=== PATIENT | male | born 1965 | race Caucasian/White ===

== ENCOUNTER 2020-11-02 09:55 | Emergency (ER) | payer MEDICAID, OTHER ==
[~2020-11-02] VITALS: Ht 175.2 cm; Wt 78.3 kg
[2020-11-02 10:01] VITALS: BP 123/66
--- NOTE | 2020-11-02 10:14 | ED Cough/URI ---
General Stated Complaint: FEVER; NASAL DRAINAGE History of Present Illness Date Seen by Provider: Nov 02, 2020 Time Seen by Provider: 10:10 Initial Comments 55-year-old male presents with 1 week of cough nasal congestion and malaise. Has been tested twice for Covid twice since onset and both times negative. Taking nhsr-rup-otcanva cough cold medicine with some relief, although he is wondering why he is not better yet. Patient is a long-term smoker without any known significant past medical history and on no prescription medication Allergies and Home Medications Allergies Coded Allergies: acetaminophen (Verified Allergy, Unknown, 11/02/20) hydrocodone (Verified Allergy, Unknown, 11/02/20) Patient Home Medication List Home Medication List Reviewed: Yes Albuterol Sulfate (Proair Hfa) 1 Puff Puff, 2 PUFF IH Q4H Prescribed by: DARRYN FUCHS on 11/02/20 1034 Doxycycline Hyclate (Doxycycline Hyclate) 100 Mg Tablet, 100 MG PO BID Prescribed by: DARRYN FUCHS on 11/02/20 1034 Review of Systems Review of Systems Constitutional: fever (subjective), malaise EENTM: ear pain, nose congestion; No throat pain, No throat swelling Respiratory: cough; No short of breath, No wheezing Cardiovascular: No chest pain, No edema, No palpitations Gastrointestinal: No abdominal pain, No loss of appetite, No nausea, No vomiting Musculoskeletal: No back pain, No joint pain Skin: No change in color, No rash Psychiatric/Neurological: Denies Headache, Denies Weakness Past Xdcbdrz-Qrwidf-Hlgwyw Hx Patient Social History Tobacco Use?: Yes Physical Exam Vital Signs - First Documented 11/02/20 10:01 Temp 36.7 Pulse 95 Resp 16 B/P (MAP) 123/66 (85) Pulse Ox 98 O2 Delivery Room Air Capillary Refill : Height: '" Weight: lbs. oz. kg; BMI Method: General Appearance: WD/WN, no apparent distress HEENT: PERRL/EOMI, normal ENT inspection, TMs normal, pharynx normal Neck: non-tender, supple Respiratory: chest non-tender, no respiratory distress, no accessory muscle use, rhonchi, wheezing, expiration Cardiovascular: regular rate, rhythm, no edema, no gallop, no JVD Gastrointestinal: non tender, soft Extremities: non-tender, no pedal edema Neurologic/Psychiatric: alert, normal mood/affect Skin: normal color, warm/dry Progress/Results/Core Measures Suspected Sepsis SIRS Temperature: Pulse: Respiratory Rate: Blood Pressure / Mean: Results/Orders My Orders Orders - DARRYN FUCHS DO Chest 1 View Ap/Pa Only (11/02/20 10:14) Vital Signs/I&O 11/02/20 10:01 Temp 36.7 Pulse 95 Resp 16 B/P (MAP) 123/66 (85) Pulse Ox 98 O2 Delivery Room Air Capillary Refill : Departure Impression Primary Impression: Acute bronchitis Qualified Codes: J20.9 - Acute bronchitis, unspecified Additional Impression: URI, acute Disposition: HOME, SELF-CARE Condition: Stable Departure-Patient Inst. Decision time for Depature: 10:16 Referrals: NO,LOCAL PHYSICIAN (PCP/Family) Primary Care Physician Patient Instructions: Acute Bronchitis, Upper Respiratory Infection ED Add. Discharge Instructions: medical records supervisor some "Mucinex D" over the counter (you will have to ask the pharmacist for this) and take one every 12 hours as needed for nasal congestion follow up with your PCP in 10-14 days if not improving, Sooner if worse Scripts Prednisone (Prednisone) 50 Mg Tab 50 MG PO DAILY, #5 TAB Prov: DARRYN FUCHS DO 11/02/20 Doxycycline Hyclate (Doxycycline Hyclate) 100 Mg Tablet 100 MG PO BID, #20 TAB 0 Refills Prov: DARRYN FUCHS DO 11/02/20 Albuterol Sulfate (PROAIR HFA) 1 Puff Puff 2 PUFF IH Q4H for Cough, #1 PUFF 1 Refill 1 PUFF = 90 MCG Prov: DARRYN FUCHS DO 11/02/20 DARRYN FUCHS DO Nov 02, 2020 10:14
[2020-11-02] MEDS ORDERED: DOXY100T2 PO (10:34)
[2020-11-02] MEDS ORDERED: RT-ALBUINH IH (10:34)
[2020-11-02] MEDS ORDERED: PRD50T PO (10:37)
--- NOTE | 2020-11-02 10:47 | Diagnostic Imaging Report ---
Indication: Cough and congestion PA upright view of the chest is obtained. There is no previous study for comparison. Heart size and pulmonary vascularity are within normal limits. Calcification in the left apical region is likely due to previous granulomatous exposure or other dystrophic calcification. There is no evidence of pneumothorax or significant pleural fluid. IMPRESSION: No acute abnormality is detected. Dictated by: Dictated on workstation # [id number]
== END 2020-11-02 10:45 | disposition home or self-care (01) ==
LOC: ER FS 09:57
DX: J20.9 Acute bronchitis, unspecified (principal); J06.9 Acute upper respiratory infection, unspecified; Z72.0 Tobacco use; Z20.822 Contact with and (suspected) exposure to COVID-19
CPT/HCPCS: 71045; 99282